=== PATIENT | male | born 1980 | race Caucasian/White ===

== ENCOUNTER 2019-06-19 08:42 | Emergency (ER) | payer MEDICAID, SELFPAY ==
[2019-06-19 08:45] VITALS: BP 143/62; PULSE 95; RESP 16; TEMP 36.7; O2SAT 95; BMI 32.1
--- NOTE | 2019-06-19 09:00 | ED.VISSUMM ---
- ER Visit Summary Date of Service: 06/19/19 Chief Complaint: Bilateral hand pain History of Present Illness: The patient is a 39 M who presents with bilateral hand pain that is been intermittent since yesterday. Patient states the pain is mostly over the palms of his hands. Patient denies any trauma or injury. Patient states the pain is sharp. Patient states the pain is worse with certain movements. Patient does admit to some tingling in his index long and ring fingers. Patient states the pain is worse in his left hand. Patient states he has been taking ibuprofen and Aleve with minimal relief. Physical Examination: Vital signs are stable. Patient is afebrile. Patient is in no acute distress. Musculoskeletal exam reveals some tenderness over the volar aspect of the wrist bilaterally. There is no edema or ecchymosis. There is no bony crepitance or step-off. There is full range of motion of the wrists, hands, and elbows bilaterally. Sensation was slightly limited to light touch in the left index, long, and ring fingers. Strength is 5/5 in the radial, median, and ulnar areas. Capillary refill is less than 2 seconds in all digits. Radial pulses are equal bilaterally. There is a positive Tinel sign at the wrist bilaterally. There is a positive Phalen test bilaterally. Emergency Department Course and Treatment: Patient was advised that this most likely is carpal tunnel. Patient was given a prescription for Naprosyn. Patient was given bilateral wrist splints. Patient was instructed to use ice to the area. Patient was instructed to follow-up with his primary care physician in 5 to 7 days. Patient was also given referral to orthopedics, Dr. Sharif is on-call. Patient had and was agreeable with the plan. All questions were answered. Disposition: Discharge home Impression: Carpal tunnel syndrome This note was generated with [employer] dictation software. It may contain incorrect words, spelling, and punctuation that were not noted in review of the chart prior to signing ED Disposition - Plan for ED Patient: Disposition: Home or Assisted Living Diagnosis: Carpal tunnel syndrome, bilateral Instructions: Carpal Tunnel Prescriptions: Naproxen [Naprosyn] 500 mg PO BID #20 tab Prescription Printed Referrals: NOT,DEFINED [Primary Care Provider] - 5-7 Days Kota Sharif MD [STAFF PHYSICIAN] - 5-7 Days
== END 2019-06-19 09:45 | disposition home or self-care (01) ==
LOC: ED 09:06
PROVIDERS: Emergency Provider Emergency Medicine
DX: G56.03 Carpal tunnel syndrome, bilateral upper limbs (principal); F17.220 Nicotine dependence, chewing tobacco, uncomplicated
CPT/HCPCS: 99283